=== PATIENT | female | born 1995 | race Caucasian/White ===

== ENCOUNTER → 2017-04-05 | Outpatient (CLI) | payer BC ==
[~2017-04-05] MED LIST: IOHEXOL 300MG/ML 150 ML BTL ONE; SOD CHLORIDE 0.9% 100 ML ONE
--- NOTE | 2017-04-06 10:28 | RADRPT ---
PROCEDURE: CT Abdomen and Pelvis with contrast. CLINICAL INDICATION: Pelvic pain. TECHNIQUE: CT scan of the abdomen and pelvis with contrast was performed on a [facility]detector [facility]. The patient was scanned following the uncomplicated intravenous administration of 90 cc of O mnipaque 300. Coronal and sagittal reformatted images were obtained from the axial source images. Im ages were reviewed on a high-resolution PACS workstation. DICOM images are available. One or more of the following dose reduction techniques were used: -Automated exposure control. -Adjustment of the mA and/or kV according to patient size. -Use of iterative reconstruction technique. The total exam CTDI equals 5.9 mGy and the total exam DLP equals 297.14 mGy-cm. COMPARISON: None. FINDINGS: Images of the lung bases are clear. CT abdomen: Liver: Enhances homogeneously without focal lesion. Biliary system: No intra or extrahepatic biliary ductal dilatation. Gallbladder: Unremarkable. Pancreas: Unremarkable. Spleen: Unremarkable. Adrenal glands: Unremarkable. Right kidney: Unremarkable. No hydronephrosis or hydroureter. Left kidney: Unremarkable. No hydronephrosis or hydroureter. Bowel loops: Unremarkable. There is no bowel obstruction. Appendix is normal. Lymph Nodes: There is no mesenteric lymphadenopathy. There is no retroperitoneal lymphadenopathy. CT pelvis: Bowel loops: Unremarkable. Rectum: Unremarkable. Urinary bladder: Unremarkable. Uterus appears unremarkable for age. No adnexal masses noted. There is a small amount of free fluid in the pelvis, which may be physiologic. Lymph nodes: There is no iliac lymphadenopathy. There is no inguinal lymphadenopathy. Bone: No aggressive osseous lesions. IMPRESSION: 1. No acute abnormality of the abdomen or pelvis. 2. Normal appendix. 3. Uterus appears unremarkable for age. No adnexal masses. Small amount of free fluid in the pelvis, which may be physiologic. If there is continued clinical concern, pelvic ultrasound would be helpfu l in further evaluation. RPTAT: EE Howard Christie Physician Date Time Electronically viewed and signed by Howard Christie Physician on 04/06/2017 10:27 /
== END | disposition home or self-care (01) ==
LOC: C/S 14:08
PROVIDERS: ATTEND Internal Medicine
DX: R10.13 Epigastric pain (principal); R10.2 Pelvic and perineal pain
CPT/HCPCS: 74177; Q9967